=== PATIENT | female | born 1965 | race Caucasian/White ===

== ENCOUNTER 2017-01-21 05:35 | Outpatient (CLI) | payer BC ==
[~2017-01-21] VITALS: Ht 170.2 cm; Wt 72.6 kg
[~2017-01-21 05:35] MED LIST: ALN70T PO; CALC-656 PO; IBP200T PO; MAGN100T3 PO; PS30T PO
[2017-01-21] MEDS ORDERED: CHOL100045 PO (16:33)
[2017-01-21] MEDS ORDERED: MEDR2.5T6 PO (16:33)
[2017-01-21] MEDS ORDERED: ESTR2TAB PO (16:33)
== END 2017-01-21 16:35 ==
LOC: PREOP 05:35
PROVIDERS: ATTEND Internal Medicine
DX: Z01.818 Encounter for other preprocedural examination (principal); Z12.11 Encounter for screening for malignant neoplasm of colon

== ENCOUNTER 2017-01-23 08:21 | Day surgery (SDC) | payer BC ==
--- NOTE | 2017-01-19 21:51 | HISTORY AND PHYSICAL ---
DATE OF SERVICE: 01/23/2017 PROCEDURE: Screening colonoscopy. REQUESTING PHYSICIAN: Chichi Yoo DO HISTORY OF PRESENT ILLNESS: The patient is a 51-year-old, white female referred for her first screening colonoscopy. She is deemed to be of average risk. She is not aware of any family history for colon cancer or colon polyps. She denies abdominal pain, constipation, diarrhea, melena or bright red blood per rectum. She has had some weight gain over the past several years. She started taking ranitidine in 05/2016, 1 daily for reflux symptoms. She denies dysphagia. MEDICATIONS: Other than ranitidine include calcium citrate with D, p.r.n. Tylenol, p.r.n. Claritin for allergy symptoms, she is on medroxyprogesterone 2.5 mg daily and Estradiol 2 mg. She takes 2000 units of vitamin D daily. PAST SURGICAL HISTORY: She has no significant past surgical history. FAMILY HISTORY: Of longevity. Both parents are living in their early 90s with no significant health problems. PHYSICAL EXAMINATION: GENERAL: Reveals a pleasant white female who appears to be in no acute distress. VITAL SIGNS: Blood pressure was 98/62. NECK: She is a Mallampati class 2 oropharyngeal configuration. HEENT: Oral cavity is clear with good dentition. CHEST: Clear. CARDIOVASCULAR: Reveals regular rate and rhythm without murmur, S3 or S4. ABDOMEN: Soft, supple, without mass, organomegaly or tenderness. EXTREMITIES: Reveal no cyanosis, clubbing or edema. ASSESSMENT: The patient was set up for screening colonoscopy on 01/23/2017. PLAN: Prep instructions with Suprep kit were given, and questions were answered. Thank you for the referral of this pleasant lady. Job ID: [id number] DocumentID: [id number] Dictated Date: 01/14/2017 20:50:30 Subscription Clerk Date: 01/14/2017 21:59:07 Dictated By: ANA MARIA CHANDLER MD
[~2017-01-23] VITALS: Ht 170.2 cm; Wt 72.6 kg
[~2017-01-23 08:21] MED LIST changes: +CHOL100045 PO; +ESTR2TAB PO; +MEDR2.5T6 PO
[2017-01-23] MEDS ORDERED: LIDOCAINE JELLY 2% (XYLOCAINE) 5 ML TUBE MM PRN (08:30)
[2017-01-23] MEDS ORDERED: FLUMAZENIL (ROMAZICON) 0.1 MG/ML 5 ML VIAL INJ PRN (08:30)
[2017-01-23] MEDS ORDERED: 1/2 NS IV SOLUTION 1,000 ML IV STA (08:30)
[2017-01-23] MEDS ORDERED: NALOXONE 0.4 MG/ML 1 ML (NARCAN) VIAL IVP PRN (08:30)
[2017-01-23] MEDS ORDERED: 1/2 NS IV SOLUTION 1,000 ML IV ONE (08:40)
[2017-01-23] MEDS ORDERED: LIDOCAINE JELLY 2% (XYLOCAINE) 5 ML TUBE ONE (08:53)
[2017-01-23] MEDS ORDERED: fentaNYL INJECTION 100 MCG/2 ML AMP ONE ×2 (08:54→09:36)
[2017-01-23] MEDS ORDERED: MIDAZOLAM 2 MG/2 ML (VERSED) VIAL ONE ×4 (08:54→09:52)
[2017-01-23 08:57] VITALS: BP 121/84
[2017-01-23] MEDS: fentaNYL INJECTION 100 MCG/2 ML AMP IVP PRN ×4 (09:18→09:49)
[2017-01-23] MEDS: MIDAZOLAM 2 MG/2 ML (VERSED) VIAL IVP PRN ×3 (09:33→09:55)
--- NOTE | 2017-01-23 10:19 | Pre-Op Note & Conscious Sedat ---
Pre-Operative Progress Note H&P Reviewed The H&P was reviewed, patient examined and no changes noted. Date H&P Reviewed: January 23, 2017 Time H&P Reviewed: 09:10 Conscious Sedation Pre-Proced ASA Class: 1 Airway Mallampati Classification: ([place] appropriate class) I. II. III, IV Lungs Heart ASA score ASA 1: a normal healthy patient ASA 2: a patient with a mild systemic disease (mid diabetes, controlled hypertension, obesity ASA 3: a patient with a severe systemic disease that limits activity (angina , COPD, prior Myocardial infarction) ASA 4: a patient with an incapacitating disease that is a constant threat to life (CHF, renal failure) ASA 5: a moribund patient not expected to survive 24 hrs. (ruptured aneurysm) ASA 6: a declared brain patient whose organs are being harvested. For emergent operations, add the letter E after the classification Grade 2 Sedation Plan: Analgesia, Amnesia, Plan communicated to team members, Discussed options with patient/fam, Discussed risks with patient/fam Note The patient is an appropriate candidate to undergo the planned procedure, sedation, and anesthesia. The patient immediately re-assessed prior to indication. ANA MARIA CHANDLER MD January 23, 2017 10:19
[2017-01-23 10:35] VITALS: BP 101/67
[2017-01-23 11:00] VITALS: BP 106/73
[2017-01-23 11:10] VITALS: BP 106/73
--- NOTE | 2017-01-23 12:31 | OPERATIVE REPORT ---
DATE OF SERVICE: 01/23/2017 COLONOSCOPY SUMMARY INDICATION FOR THE PROCEDURE: Screening colonoscopy. The patient was placed in the left lateral decubitus position. Prior to undergoing colonoscopy, digital rectal evaluation was performed. Anal sphincter tone was normal and the perianal reflex was intact. No abnormalities were noted on digital inspection of the anal canal or distal rectal vault. The colonoscope was then inserted into the rectum under direct visualization and advanced to the cecum. The cecum was identified by identification of the ileocecal valve, cecal strap and the appendiceal orifice. Photographic documentation was obtained. Careful inspection was made as the colonoscope was withdrawn. FINDINGS: There was no evidence for internal or external hemorrhoids and the rectum and sigmoid colon were unremarkable. Present in the distal descending colon, was a diminutive sessile 3 mm x 4 mm polyp. It was photographed, biopsied and ablated with no subsequent blood loss. The remainder of the descending colon and transverse colon were unremarkable. Present in the proximal ascending colon, just distal to the ileocecal valve, were 2 adjacent sessile diminutive adenomatous-appearing polyps. They were photographed, biopsied and ablated, again with no blood loss. No other abnormalities were noted on today's procedure. ASSESSMENT: Three diminutive sessile polyps were removed, 1 from the distal descending colon and 2 from the proximal ascending colon via hot forceps. This was an otherwise normal colonoscopy of the cecum. Will await histopathology report before making future surveillance colonoscopy recommendations. The patient is not aware of any family history for colon cancer. Thank you for the referral of this pleasant lady. Job ID: [id number] DocumentID: [id number] Dictated Date: 01/23/2017 11:26:49 Test Engine Evaluator Date: 01/23/2017 11:51:09 Dictated By: ANA MARIA CHANDLER MD
== END 2017-01-23 11:15 | disposition home or self-care (01) ==
LOC: ENDO 08:21
PROVIDERS: ATTEND Internal Medicine
DX: Z12.11 Encounter for screening for malignant neoplasm of colon (principal); K63.5 Polyp of colon
CPT/HCPCS: 84703

== ENCOUNTER → 2017-02-10 | Outpatient (CLI) | payer BC ==
--- NOTE | 2017-02-10 14:50 | Diagnostic Imaging Report ---
PROCEDURE: US Thyroid. TECHNIQUE: Multiple real-time grayscale images were obtained of the thyroid in various projections. INDICATION: Followup nodule. FINDINGS: The right thyroid lobe is 5.3 x 1.9 x 1.8 cm. The left lobe is 4 x 1.4 x 1.4 cm. There is a 1.6 x 1.4 x 1.4 cm nodule in the lower aspect of the right thyroid lobe with internal vascularity demonstrated. This is similar to prior exams including the exam done on 08/24/2014. No other nodule is seen. IMPRESSION: Stable 1.6 cm right thyroid nodule in the inferior aspect of the right thyroid lobe. Dictated by: Dictated on workstation # [id number]
== END ==
LOC: RAD 11:02
PROVIDERS: ATTEND Otolaryngology Otolaryngology/Facial Plastic Surgery
DX: E04.1 Nontoxic single thyroid nodule (principal)
CPT/HCPCS: 76536

== ENCOUNTER → 2017-06-22 | Outpatient (CLI) | payer BC ==
--- NOTE | 2017-06-23 21:01 | Diagnostic Imaging Report ---
Bilateral screening mammogram 2D views with tomosynthesis. The current study was also evaluated with a Computer Aided Detection (CAD) system. INDICATION: Screening. No current complaints stated on the questionnaire. COMPARISON: 08/14/2016. FINDINGS: The breasts are composed of heterogeneously dense parenchyma which may decrease mammographic sensitivity. There is no mass, architectural distortion, or suspicious cluster of calcifications seen. Allowing for technique and positional differences, no suspicious change is seen. IMPRESSION: Dense breasts with no definite change. ACR BI-RADS Category 2: Benign findings. Result letter will be mailed to the patient. Note: At least 10% of breast cancer is not imaged by mammography. Dictated by: Dictated on workstation # [id number]
== END ==
LOC: RAD 14:49
PROVIDERS: ATTEND Obstetrics & Gynecology
DX: Z12.31 Encounter for screening mammogram for malignant neoplasm of breast (principal)
CPT/HCPCS: 77067

== ENCOUNTER → 2018-06-23 | Outpatient (CLI) | payer BC ==
--- NOTE | 2018-06-23 14:06 | Diagnostic Imaging Report ---
INDICATION: Routine screening. COMPARISON: 06/22/2017 and 08/14/2016. TECHNIQUE: 2D and 3D bilateral screening mammography was performed with CAD. FINDINGS: Both breasts are heterogeneously dense, limiting the sensitivity of mammography. No mass or malignant appearing microcalcifications are seen. The axillae are unremarkable. IMPRESSION: No mammographic features suspicious for malignancy are identified. ACR BI-RADS Category 1: Negative. Result letter will be mailed to the patient. Note: At least 10% of breast cancer is not imaged by mammography. Dictated by: Dictated on workstation # [id number]
== END ==
LOC: RAD 09:45
PROVIDERS: ATTEND Obstetrics & Gynecology
DX: Z12.31 Encounter for screening mammogram for malignant neoplasm of breast (principal)
CPT/HCPCS: 77067

== ENCOUNTER → 2019-02-07 | Outpatient (CLI) | payer BC ==
--- NOTE | 2019-02-07 10:07 | Diagnostic Imaging Report ---
PROCEDURE: US Thyroid. TECHNIQUE: Multiple real-time grayscale images were obtained of the thyroid in various projections. INDICATION: Thyroid nodule. COMPARISON: 02/10/2017 and 08/09/2015 FINDINGS: The right lobe of thyroid gland measures 4.8 x 1.9 x 1.7 cm. A peripherally calcified 1.6 x 1.4 x 1.4 cm nodule is again identified with the inferior pole of the right thyroid lobe, unchanged since August 2015. No new right thyroid nodules are seen. The left lobe of thyroid gland measures 4.8 x 1.4 x 1.4 cm. It maintains a homogeneous echotexture without discrete nodule. Isthmus is unremarkable. IMPRESSION: Stable peripherally calcified 1.6 cm right thyroid nodule. Given stability since August 2015, this is felt to be benign. No new thyroid nodules identified. Dictated by: Dictated on workstation # [id number]
== END ==
LOC: RAD 09:27
PROVIDERS: ATTEND Otolaryngology Otolaryngology/Facial Plastic Surgery
DX: E04.1 Nontoxic single thyroid nodule (principal)
CPT/HCPCS: 76536

== ENCOUNTER → 2019-07-01 | Outpatient (CLI) | payer BC ==
--- NOTE | 2019-07-01 17:52 | Diagnostic Imaging Report ---
INDICATION: Routine screening. Comparison is made with prior mammograms from 06/23/2018 and 06/22/2017. 2-D and 3-D bilateral screening mammography was performed. The current study was also evaluated with a Computer Aided Detection (CAD) system. 3-D tomosynthesis was also performed and reviewed. FINDINGS: Both breasts are heterogeneously dense, limiting the sensitivity of mammography. The parenchymal pattern is stable. No mass or malignant-appearing microcalcifications are seen. Axillae are unremarkable. IMPRESSION: No mammographic features suspicious for malignancy are identified. ACR BI-RADS Category 1: Negative. Result letter will be mailed to the patient. Note: At least 10% of breast cancer is not imaged by mammography. Dictated by: Dictated on workstation # [id number]
== END ==
LOC: RAD 15:25
PROVIDERS: ATTEND Obstetrics & Gynecology
DX: Z12.31 Encounter for screening mammogram for malignant neoplasm of breast (principal)
CPT/HCPCS: 77067

== ENCOUNTER → 2020-06-18 | Outpatient (CLI) | payer BC ==
--- NOTE | 2020-06-18 11:36 | Diagnostic Imaging Report ---
INDICATION: Routine screening. Comparison is made with prior mammogram from 07/01/2019 and 06/23/2018. 2-D and 3-D bilateral screening mammography was performed with CAD. Both breasts remain heterogeneously dense, limiting the sensitivity of mammography. No dominant mass or malignant appearing microcalcifications are seen. Axillae are unremarkable. IMPRESSION: BI-RADS Category 1 No mammographic features suspicious for malignancy are identified. ACR BI-RADS Category 1: Negative. Result letter will be mailed to the patient. Note: At least 10% of breast cancer is not imaged by mammography. Dictated by: Dictated on workstation # [id number]
== END ==
LOC: RAD 08:45
PROVIDERS: ATTEND Obstetrics & Gynecology
DX: Z12.31 Encounter for screening mammogram for malignant neoplasm of breast (principal)
CPT/HCPCS: 77063; 77067

== ENCOUNTER → 2021-06-11 | Outpatient (CLI) | payer BC ==
--- NOTE | 2021-06-11 13:07 | Diagnostic Imaging Report ---
INDICATION: Routine screening. Comparison is made with prior mammogram 06/18/2020 and 07/01/2019. 2-D and 3-D bilateral screening mammography was performed with CAD. Both breast are heterogeneously dense, limiting the sensitivity of mammography. The parenchymal pattern is stable. No mass or malignant-appearing microcalcifications are seen. Axillae are unremarkable. IMPRESSION: BI-RADS Category 1 No mammographic features suspicious for malignancy are identified. ACR BI-RADS Category 1: Negative. Result letter will be mailed to the patient. Note: At least 10% of breast cancer is not imaged by mammography. Dictated by: Dictated on workstation # [id number]
== END ==
LOC: RAD 11:00
PROVIDERS: ATTEND Obstetrics & Gynecology
DX: Z12.31 Encounter for screening mammogram for malignant neoplasm of breast (principal)
CPT/HCPCS: 77063; 77067

== ENCOUNTER → 2021-07-02 | Outpatient (CLI) | payer BC ==
[~2021-07-02] MED LIST changes: -ESTR2TAB PO; +ESTR2TAB3 PO
--- NOTE | 2021-07-02 10:03 | Diagnostic Imaging Report ---
INDICATION: Postmenopausal state, NA1.0 COMPARISON: 08/23/2015 FINDINGS: AP Spine L1-L4: [BMD (g/cm2): 0.926] [T-Score: -2.3] [Z-Score: -1.4] [BMD Previous: 1.004] [BMD % Change: -7.8] LT Hip Neck: [BMD (g/cm2): 0.682] [T-Score: -2.6] [Z-Score: -1.5] LT Hip Total: [BMD (g/cm2):0.791] [T-Score:-1.7] [Z-Score: -1.0] [BMD Previous: 0.825] [BMD % Change: -4.1] RT Hip Neck: [BMD (g/cm2):0.683] [T-Score:-2.6] [Z-Score:-1.5] RT Hip Total: [BMD (g/cm2):0.764] [T-score:-1.9] [Z-Score:-1.2] [BMD Previous:0.792] [BMD % Change:-3.5] *Indicates significant change from prior examination based on 95% confidence level. World Health Organization criteria for BMD interpretation classify patients as Normal (T-score at or above -1.0), Osteopenic (T-score between -1.0 and -2.5) or Osteoporotic (T-score at or below -2.5). LIMITATIONS AND MODIFICATION: None. FRACTURE RISK (FRAX SCORE): The ten year probability of (%): Major Osteoporotic Fracture: [16.2] Hip Fracture: [3.7] IMPRESSION: 1. Osteoporosis. 2. No significant change in bone mineral density since prior examination. 3. See below National Osteoporosis Foundation guidelines on when to potentially initiate pharmacologic therapy. Based on the National Osteoporosis Foundation Guidelines, pharmacologic treatment should be initiated in any of the following, unless clinical conditions suggest otherwise: * Any patient with prior fragility fracture of the hip or vertebrae. A spine fracture indicates 5X risk for subsequent spine fracture and 2X risk for subsequent hip fracture. * Osteoporosis (T-score <-2.5). * Postmenopausal women and men age 50 and older with low bone mass/osteopenia (T-score between -1.0 and -2.5) by DXA and 10-year major osteoporotic fracture greater than 20% or a 10-year probability of hip fracture greater than 3%. These fracture risks are supplied above in the FRAX score, if applicable. * Clinician judgement and/or patient preferences may indicate treatment for people with 10-year fracture probabilities above or below these levels. Dictated by: Dictated on workstation # [id number]
== END ==
LOC: RAD 09:00
PROVIDERS: ATTEND Family Medicine
DX: M81.0 Age-related osteoporosis without current pathological fracture (principal); Z78.0 Asymptomatic menopausal state
CPT/HCPCS: 77080

== ENCOUNTER → 2022-06-19 | Outpatient (CLI) | payer BC ==
--- NOTE | 2022-06-19 15:07 | Diagnostic Imaging Report ---
INDICATION: Routine screening. COMPARISON is made with prior mammograms 06/11/2021 and 06/18/2020. 2-D and 3-D bilateral screening mammography was performed with CAD. Both breasts are heterogeneously dense, limiting the sensitivity of mammography. The parenchymal pattern is stable. No mass or malignant-appearing microcalcifications are seen. Axillae are unremarkable. IMPRESSION: BI-RADS Category 1. No mammographic features suspicious for malignancy are identified. ACR BI-RADS Category 1: Negative. Result letter will be mailed to the patient. Note: At least 10% of breast cancer is not imaged by mammography. Dictated by: Dictated on workstation # [id number]
== END ==
LOC: RAD 10:30
PROVIDERS: ATTEND Obstetrics & Gynecology
DX: Z12.31 Encounter for screening mammogram for malignant neoplasm of breast (principal)
CPT/HCPCS: 77063; 77067

== ENCOUNTER → 2023-06-18 | Outpatient (CLI) | payer BC ==
--- NOTE | 2023-06-18 17:08 | Diagnostic Imaging Report ---
3D bilateral screening mammogram. 2-D and 3-D bilateral screening mammography was performed with CAD. COMPARISON: This study was compared to the prior exams of 06/19/2022, 06/11/2021 and 06/18/2020. There are no current complaints. The fibroglandular tissue in both breasts is heterogeneously dense. This does limit the sensitivity of this exam. When compared to the previous study there does not appear to have been any significant change. There is no primary or secondary sign of malignancy noted. IMPRESSION: There is no evidence for malignancy. BI-RADS CATEGORY: 1 NEGATIVE Dictated by: Dictated on workstation # [id number]
== END ==
LOC: RAD 11:18
PROVIDERS: ATTEND Obstetrics & Gynecology
DX: Z12.31 Encounter for screening mammogram for malignant neoplasm of breast (principal)
CPT/HCPCS: 77063; 77067

== ENCOUNTER → 2023-07-14 | Outpatient (CLI) | payer BC ==
--- NOTE | 2023-07-14 16:09 | Diagnostic Imaging Report ---
INDICATION: Postmenopausal state COMPARISON: 07/02/2021 FINDINGS: AP Spine L1-L4: [BMD (g/cm2): 0.943] [T-Score: -2.1] [Z-Score: -1.2] [BMD Previous: 0.926] [BMD % Change: 1.8] LT Hip Neck: [BMD (g/cm2): 0.650] [T-Score: -2.8] [Z-Score: -1.7] LT Hip Total: [BMD (g/cm2):0.776] [T-Score:-1.8] [Z-Score: -1.1] [BMD Previous: 0.791] [BMD % Change: -1.9] RT Hip Neck: [BMD (g/cm2):0.686] [T-Score:-2.5] [Z-Score:-1.4] RT Hip Total: [BMD (g/cm2):0.768] [T-score:-1.9] [Z-Score:-1.2] [BMD Previous:0.764] [BMD % Change:0.5] *Indicates significant change from prior examination based on 95% confidence level. World Health Organization criteria for BMD interpretation classify patients as Normal (T-score at or above -1.0), Osteopenic (T-score between -1.0 and -2.5) or Osteoporotic (T-score at or below -2.5). LIMITATIONS AND MODIFICATION: None. FRACTURE RISK (FRAX SCORE): The ten year probability of (%): Major Osteoporotic Fracture: [20.0] Hip Fracture: [5.2] IMPRESSION: 1. Osteoporosis. 2. No significant change in bone mineral density since prior examination. 3. See below National Osteoporosis Foundation guidelines on when to potentially initiate pharmacologic therapy. Based on the National Osteoporosis Foundation Guidelines, pharmacologic treatment should be initiated in any of the following, unless clinical conditions suggest otherwise: * Any patient with prior fragility fracture of the hip or vertebrae. A spine fracture indicates 5X risk for subsequent spine fracture and 2X risk for subsequent hip fracture. * Osteoporosis (T-score <-2.5). * Postmenopausal women and men age 50 and older with low bone mass/osteopenia (T-score between -1.0 and -2.5) by DXA and 10-year major osteoporotic fracture greater than 20% or a 10-year probability of hip fracture greater than 3%. These fracture risks are supplied above in the FRAX score, if applicable. * Clinician judgement and/or patient preferences may indicate treatment for people with 10-year fracture probabilities above or below these levels. Dictated by: Dictated on workstation # [id number]
== END ==
LOC: RAD 14:25
PROVIDERS: ATTEND Obstetrics & Gynecology
DX: M81.0 Age-related osteoporosis without current pathological fracture (principal); Z78.0 Asymptomatic menopausal state
CPT/HCPCS: 77080

== ENCOUNTER 2023-08-05 14:27 | Outpatient (RCR) | payer BC | END 2023-08-06 | PROVIDERS: ATTEND Family Medicine | DX: R32 Unspecified urinary incontinence (principal) ==